=== PATIENT | male | born 1985 | race Caucasian/White ===

== ENCOUNTER 2017-09-05 21:36 | Emergency (ER) | payer SELFPAY ==
[~2017-09-05] VITALS: Ht 193 cm; Wt 177.7 kg
[2017-09-05] MEDS ORDERED: ONDANSETRON ODT 4 MG PO ONE (22:30)
[2017-09-05] MEDS ORDERED: morphine SULFATE 10 MG/ML, 1ML IVPush ONE (22:30)
[2017-09-05] MEDS ORDERED: DIAZEPAM 5 MG TABLET PO ONE (22:30)
[2017-09-05] MEDS ORDERED: DIAZEPAM 5 MG TABLET ONE (22:54)
[2017-09-05] MEDS ORDERED: ONDANSETRON ODT 4 MG ONE (22:54)
[2017-09-05] MEDS ORDERED: MORPHINE SULFATE 4 MG/ML, 1ML ONE (22:54)
[2017-09-06 01:01] VITALS: BP 138/90
== END 2017-09-06 01:22 | disposition home or self-care (01) ==
LOC: ED 22:05
DX: S39.012A Strain of muscle, fascia and tendon of lower back, initial encounter (principal); Z72.9 Problem related to lifestyle, unspecified; Z59.0 Homelessness; J45.909 Unspecified asthma, uncomplicated; F43.10 Post-traumatic stress disorder, unspecified; W19.XXXA Unspecified fall, initial encounter; Y93.89 Activity, other specified; Y99.8 Other external cause status; Y92.89 Other specified places as the place of occurrence of the external cause
CPT/HCPCS: 72131; 93005; 96374; 99284; J2270; Q0162